=== PATIENT | male | born 1980 | race Caucasian/White ===

== ENCOUNTER 2017-08-07 18:13 | Emergency (ER) | payer BC ==
[2017-08-07 18:47] VITALS: BP 152/93; PULSE 68; RESP 18; TEMP 97.3; O2SAT 98
--- NOTE | 2017-08-07 19:46 | ED PDOC ---
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 He denies any pain but does report a foreign body sensation. He denies excessive tearing, light sensitivity, pain to his eye. No other complaints. Past Medical History Reviewed: Historical Data, Nursing Documentation, Vital Signs Vital Signs: Last Vital Signs Temp 97.3 F L 08/07/17 18:45 Pulse 68 08/07/17 18:45 Resp 18 08/07/17 18:45 BP 152/93 H 08/07/17 18:45 Pulse Ox 98 08/07/17 18:45 - Medical History PMH: No Chronic Diseases - Surgical History Surgical History: No Surg Hx - Family History Family History: States: No Known Family Hx, Hypertension - Home Medications Home Medications: Ambulatory Orders Medication Instructions Recorded Erythromycin 0.5% [Erythromycin 1 appl LEFTEYE QID #1 tube 08/07/17 0.5% Oint] - Allergies Allergies/Adverse Reactions: Allergies Allergy/AdvReac Type Severity Reaction Status Date / Time No Known Allergies Allergy Verified 08/07/17 18:47 Review of Systems Eyes: Positive for: Other (foreign body sensation left eye). Negative for: Pain , Conjunctivae Inflammation, Eyelid Inflammation, Redness Physical Exam - Reviewed Nursing Documentation Reviewed: Yes Vital Signs Reviewed: Yes - Physical Exam Appears: Positive for: Non-toxic, No Acute Distress Head Exam: Positive for: ATRAUMATIC, NORMAL INSPECTION, NORMOCEPHALIC Skin: Positive for: Warm, Dry Eye Exam: Positive for: EOMI, PERRL. Negative for: Periorbital swelling, Periorbital tenderness, Conjunctival injection, Scleral icterus - ECG O2 Sat by Pulse Oximetry: 98 (RA) Pulse Ox Interpretation: Normal Medical Decision Making Medical Decision Making: Impression: Left eye irritation Plan: -- Flurosecine uptake negative. Eversion of upper and lower left eyelids with no foreign body noted. Patient advised to get eye irrigation but declines. Patient instructed to return to ED if symptoms persists or worsens. Stable for discharge home. Scribe Attestation: Documented by Marilyn Charles acting as a scribe for FAHEEM Holcomb Provider Attestation: All medical record entries made by the Scribe were at my direction and personally dictated by me. I have reviewed the chart and agree that the record accurately reflects my personal performance of the history, physical exam, medical decision making, and the department course for this patient. I have also personally directed, reviewed, and agree with the discharge instructions and disposition. Disposition - Clinical Impression Clinical Impression: Sensation of foreign body in eye - Patient ED Disposition Is Patient to be Admitted: No - Disposition Referrals: [facility] [Outside] Peng Vásquez MD [Staff Provider] - Disposition: Routine/Home Disposition Time: 19:36 Condition: STABLE Prescriptions: Erythromycin 0.5% [Erythromycin 0.5% Oint] 1 appl LEFTEYE QID #1 tube Instructions: Eye Foreign Body (ED) Forms: [facility] ([place]) Print Language: SYRIAN
== END 2017-08-07 19:36 | disposition home or self-care (01) ==
LOC: H.ER 18:13
DX: T15.02XA Foreign body in cornea, left eye, initial encounter (principal)